=== PATIENT | male | born 1980 | race American Indian/Alaskan Native ===

== ENCOUNTER 2019-02-25 07:45 | Inpatient (IN) | payer OTHER ==
[2019-02-25] MEDS ORDERED: CARDIZEM IV ONE ×2 (08:22→09:18)
[2019-02-25 08:39] LABS: Basophils # (Auto) 0.2 K/mm3 (0.0-0.1); Basophils % (Auto) 2.5 % (0.0-1.8); Eosinophils # (Auto) 0.1 K/mm3 (0.0-0.4); Eosinophils % (Auto) 1.6 % (0.0-4.3); Hematocrit 55.2 % (35.5-45.6); Hemoglobin 19.2 gm/dl (11.8-15.2); Lymphocytes # (Auto) 2.4 K/mm3 (1.2-5.4); Lymphocytes % (Auto) 34.9 % (13.4-35.0); Mean Corpuscular HGB Conc 35 % (32-34); Mean Corpuscular Volume 94 fl (84-94); Monocytes # (Auto) 0.5 K/mm3 (0.0-0.8); Monocytes % (Auto) 6.8 % (0.0-7.3); Platelet Count 248 K/mm3 (140-440); Red Blood Count 5.88 M/mm3 (3.65-5.03)
[2019-02-25 08:50] LABS: INR 0.97 (0.87-1.13); Partial Thromboplastin Time 25.2 Sec. (24.2-36.6)
[2019-02-25 08:50] LABS: BUN/Creatinine Ratio 19; Blood Urea Nitrogen 15 mg/dL (9-20); Hemolysis Index 13
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
[2019-02-25 09:01] LABS: Alanine Aminotransferase 29 units/L (7-56); Albumin 3.7 g/dL (3.9-5)
[2019-02-25 09:06] LABS: Bilirubin,Direct < 0.2 mg/dL (0-0.2)
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
--- NOTE | 2019-02-25 10:44 | Consultation ---
History of Present Illness Consult date: 02/25/19 Requesting physician: JASMEET POLLARD Consult reason: atrial fibrillation History of present illness: The pt is a 39 YO male with a past medical history of HTN, DM, tobacco use, ETOH use. He is previously unknown to our practice. He presented with c/o diaphoresis and palpitations since this morning. He states that he was in his normal state of health when he went to sleep last night. His symptoms were noted after waking up this morning and progressively got worse while he was getting his child dressed for school. He took his child to school and stopped by the [employer] station to be evaluated and was noted to be tachycardic and was referred to ED for further eval/management. He denies any chest pain, SOB, n/v, dizziness or syncope. Following arrival to ED, he was noted to be in AFib with RVR. He was given IV cardizem boluses which improved his HR. On evaluation, he remains in AFib with HR 70s - 110s, BPs stable. He denies any prior CAD, AMI, HF or arrhythmias. He denies any illicit drug use or excessive caffeine intake. He drinks 1-2 beers per night and drinks several mixed drinks every weekend. He denies any prior cardiac evaluation. His home medication regimen includes lisinopril and metformin. Past History Past Medical History: diabetes, hypertension Social history: , lives with family, smoking, alcohol abuse Medications and Allergies Allergies Allergy/AdvReac Type Severity Reaction Status Date / Time No Known Allergies Allergy Verified 02/25/19 07:56 Home Medications Medication Instructions Recorded Confirmed Last Taken Type Cyclobenzaprine HCl [Flexeril] 10 mg PO TID PRN #15 tablet 10/06/13 Unknown Rx Ibuprofen [Motrin] 800 mg PO TID PRN #21 tablet 10/06/13 Unknown Rx amLODIPine [Norvasc] 5 mg PO DAILY #30 tab 04/26/14 Unknown Rx Active Meds: Active Medications Diltiazem HCl (Cardizem/D5w 100mg/100ml) 100 mg in 100 mls @ 5 mls/hr IV TITR SHARONDA; Protocol Review of Systems Constitutional: no weight loss, no weight gain, no fever, no chills, no sweats Ears, nose, mouth and throat: no ear pain, no nose pain, no sinus pressure, no sinus pain Cardiovascular: palpitations, high blood pressure, no chest pain, no orthopnea, no rapid/irregular heart beat, no edema, no syncope, no lightheadedness, no shor tness of breath, no dyspnea on exertion, no leg edema Respiratory: no cough, no shortness of breath, no dyspnea on exertion, no congestion, no wheezing, no pain on inspiration Gastrointestinal: no abdominal pain, no nausea, no vomiting, no diarrhea, no constipation, no change in bowel habits Genitourinary Male: no dysuria, no hematuria, no flank pain, no discharge, no urinary frequency, no urinary hesitancy Musculoskeletal: no neck stiffness, no neck pain, no shooting arm pain, no arm numbness/tingling, no low back pain, no shooting leg pain, no leg numbness/tingling Integumentary: no rash, no pruritis, no redness, no sores, no wounds Neurological: no head injury, no paralysis, no weakness, no parathesias, no numbness, no tingling, no seizures, no syncope Psychiatric: no anxiety Endocrine: no cold intolerance, no heat intolerance Hematologic/Lymphatic: no easy bruising, no easy bleeding Allergic/Immunologic: no urticaria, no wheezing Physical Examination Vital Signs Temp Pulse Resp BP Pulse Ox 98.2 F 155 H 22 129/90 97 02/25/19 07:57 02/25/19 07:57 02/25/19 07:57 02/25/19 07:57 02/25/19 07:57 General appearance: no acute distress HEENT: Positive: PERRL, Normocephaly, Mucus Membranes Moist Neck: Positive: neck supple, trachea midline Cardiac: Positive: irregularly irregular, S1/S2 Lungs: Positive: clear to auscultation Neuro: Positive: Grossly Intact Abdomen: Positive: Soft. Negative: Tender Skin: Negative: Rash, Wound Musculoskeletal: No Pain Extremities: Absent: edema Results 02/25/19 08:12 02/25/19 08:12 Cardiac Enzymes 02/25/19 Range/Units 08:12 AST 28 (5-40) units/L Coagulation 02/25/19 Range/Units 08:30 PT 13.5 (12.2-14.9) Sec. INR 0.97 (0.87-1.13) APTT 25.2 (24.2-36.6) Sec. CBC 02/25/19 Range/Units 08:12 WBC 7.0 (4.5-11.0) K/mm3 RBC 5.88 H (3.65-5.03) M/mm3 Hgb 19.2 H (11.8-15.2) gm/dl Hct 55.2 H (35.5-45.6) % Plt Count 248 (140-440) K/mm3 Lymph # 2.4 (1.2-5.4) K/mm3 [place] # 0.5 (0.0-0.8) K/mm3 Eos # 0.1 (0.0-0.4) K/mm3 Baso # 0.2 H (0.0-0.1) K/mm3 Comprehensive Metabolic Panel 02/25/19 02/25/19 Range/Units 08:12 08:12 Sodium 135 L (137-145) mmol/L Potassium 4.5 (3.6-5.0) mmol/L Chloride 100.6 (98-107) mmol/L Carbon Dioxide 20 L (22-30) mmol/L BUN 15 (9-20) mg/dL Creatinine 0.8 (0.8-1.5) mg/dL Glucose 188 H (75-100) mg/dL Calcium 9.0 (8.4-10.2) mg/dL Direct Bilirubin < 0.2 (0-0.2) mg/dL Indirect Bilirubin 0.2 mg/dL AST 28 (5-40) units/L ALT 29 (7-56) units/L Alkaline Phosphatase 66 (35-129) units/L Total Protein 7.1 (6.3-8.2) g/dL Albumin 3.7 L (3.9-5) g/dL - Imaging and Cardiology Echo: pending EKG: report reviewed, image reviewed EKG interpretations - Telemetry EKG Rhythm: Atrial Fibrillation - EKG Supraventricular dysrhythmia: atrial fibrillation Assessment and Plan Will attempt to chemically convert to NSR - initiate PO amiodarone and lopressor. If pt does not convert to SR overnight, will tentatively CELSO guided DCCV in AM. NPO after MN. Initiate full dosage lovenox and consider conversion to NOAC prior to hospital discharge. Obtain thyroid profile and tte. Cessation of tobacco and ETOH use strongly encouraged. Assessment and plan reviewed with pt and pt's at bedside. The patient has been seen in conjunction with Dr. Soliman who agrees with the assessment and plan of care. - Patient Problems (1) Atrial fibrillation with RVR Current Visit: Yes Status: Acute (2) HTN (hypertension) Current Visit: Yes Status: Chronic (3) Diabetes Current Visit: Yes Status: Chronic (4) Obesity Current Visit: Yes Status: Chronic (5) Alcohol use Current Visit: Yes Status: Chronic (6) Tobacco use Current Visit: Yes Status: Chronic
[2019-02-25] MEDS ORDERED: BABY ASPIRIN PO ONE (10:45)
[2019-02-25] MEDS ORDERED: CARDIZEM/D5W 100MG/100ML 100 MG/100 ML BAG IV SCH (11:00)
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
[2019-02-25] MEDS: LOVENOX SUB-Q SCH ×2 (11:55→22:13)
[2019-02-25] MEDS: CORDARONE PO SCH ×3 (11:55→21:35)
[2019-02-25] MEDS ORDERED: MORPHINE IV PRN (12:01)
[2019-02-25] MEDS ORDERED: ZOFRAN IV PRN (12:01)
[2019-02-25] MEDS ORDERED: TYLENOL PO PRN (12:01)
[2019-02-25] MEDS ORDERED: SODIUM CHLORIDE FLUSH SYRINGE 10 ML IV PRN (12:01)
[2019-02-25] MEDS: LOPRESSOR PO SCH ×2 (13:55→21:30)
[2019-02-25] MEDS ORDERED: LOPRESSOR PO SCH (14:00)
[2019-02-25] MEDS: SODIUM CHLORIDE FLUSH SYRINGE 10 ML IV SCH (22:19)
[2019-02-26 06:06] LABS: Basophils % (Auto) 0.6 % (0.0-1.8); Eosinophils # (Auto) 0.1 K/mm3 (0.0-0.4); Eosinophils % (Auto) 1.5 % (0.0-4.3); Hematocrit 54.7 % (35.5-45.6); Hemoglobin 18.6 gm/dl (11.8-15.2); Lymphocytes # (Auto) 3.6 K/mm3 (1.2-5.4); Lymphocytes % (Auto) 42.8 % (13.4-35.0); Mean Corpuscular HGB Conc 34 % (32-34); Mean Corpuscular Volume 95 fl (84-94); Monocytes # (Auto) 0.8 K/mm3 (0.0-0.8); Platelet Count 243 K/mm3 (140-440); Red Blood Count 5.73 M/mm3 (3.65-5.03); Red Cell Distribution Width 13.1 % (13.2-15.2)
[2019-02-26 06:23] LABS: BUN/Creatinine Ratio 19; Blood Urea Nitrogen 17 mg/dL (9-20); Hemolysis Index 20
[2019-02-26] MEDS: LOPRESSOR PO SCH (09:10)
[2019-02-26 09:38] VITALS: BP 156/99
--- NOTE | 2019-02-26 10:15 | Progress Note ---
Assessment and Plan Pt converted to NSR overnight and remains in SR today. CELSO guided DCCV cancelled. D/c amiodarone and increase lopressor to 25mg BID. Await tte. Cont lovenox and plan for conversion to Eliquis prior to hospital discharge. Possible d/c home this afternoon. The patient has been seen in conjunction with Dr. Soliman who agrees with the assessment and plan of care. - Patient Problems (1) Atrial fibrillation with RVR Current Visit: Yes Status: Acute (2) HTN (hypertension) Current Visit: Yes Status: Chronic (3) Diabetes Current Visit: Yes Status: Chronic (4) Obesity Current Visit: Yes Status: Chronic (5) Alcohol use Current Visit: Yes Status: Chronic (6) Tobacco use Current Visit: Yes Status: Chronic Subjective Date of service: 02/26/19 Principal diagnosis: AFib RVR Interval history: Pt resting in bed, no current cardiac complaints. tele reviewed - pt converted to SR overnight and remains in NSR. Objective Last Vital Signs Temp 97.6 F 02/26/19 07:34 Pulse 97 H 02/26/19 08:54 Resp 18 02/26/19 07:34 BP 156/99 02/26/19 07:34 Pulse Ox 99 02/26/19 09:01 - Physical Examination General: No Apparent Distress HEENT: Positive: PERRL, Normocephaly, Mucus Membranes Moist Neck: Positive: neck supple, trachea midline Cardiac: Positive: Reg Rate and Rhythm, S1/S2 Lungs: Positive: Decreased Breath Sounds Neuro: Positive: Grossly Intact Abdomen: Positive: Soft. Negative: Tender Skin: Negative: Rash, Wound Musculoskeletal: No Pain Extremities: Absent: edema - Labs and Meds CBC 02/26/19 Range/Units 04:38 WBC 8.4 (4.5-11.0) K/mm3 RBC 5.73 H (3.65-5.03) M/mm3 Hgb 18.6 H (11.8-15.2) gm/dl Hct 54.7 H (35.5-45.6) % Plt Count 243 (140-440) K/mm3 Lymph # 3.6 (1.2-5.4) K/mm3 [place] # 0.8 (0.0-0.8) K/mm3 Eos # 0.1 (0.0-0.4) K/mm3 Baso # 0.0 (0.0-0.1) K/mm3 Comprehensive Metabolic Panel 02/26/19 Range/Units 04:38 Sodium 137 (137-145) mmol/L Potassium 4.0 (3.6-5.0) mmol/L Chloride 101.0 (98-107) mmol/L Carbon Dioxide 24 (22-30) mmol/L BUN 17 (9-20) mg/dL Creatinine 0.9 (0.8-1.5) mg/dL Glucose 154 H (75-100) mg/dL Calcium 9.0 (8.4-10.2) mg/dL - Imaging and Cardiology EKG: report reviewed, image reviewed Echo: pending
[2019-02-26] MEDS: LOVENOX SUB-Q SCH (11:32)
[2019-02-26] MEDS: SODIUM CHLORIDE FLUSH SYRINGE 10 ML IV SCH (11:33)
--- NOTE | 2019-02-26 16:00 | Event Note ---
Date: 02/26/19 TTE reviewed. Pt remains in NSR. Currently stable cardiac status. Pt may discharge home from cardiology standpoint on Lopressor and Eliquis. Follow up in our [place] office with Dr. Masterson on 03/06/2019 @ 10:30AM. Ariana MORGAN NP / DR. MASTERSON
--- NOTE | 2019-02-26 16:32 | Discharge Summary ---
Providers - Providers Date of Admission: 02/25/19 10:39 Date of discharge: 02/26/19 Attending physician: DANIELLE ESPINAL Primary care physician: [facility] Hospital[facility] Condition: Fair Hospital course: Patient is 39 yo with diabetes, hypertension. He presented with sudden palpitation. He denied chest pain. Palpitations worse on exertion and associated with shortness of breath. He was seen and examined in Emergency Department. EKG revealed atrial fibrillation with rapid ventricular response. He was given Cardizem iv. Cardiology consulted and patient was evaluated in ED and admitted. He was put on Amiodarone and Metoprolol. Patient evaluated following day and was much improved. He had converted to normal sinus rhythm. Cardiology recommended increasing dose of metoprolol and discontinuing Amiodarone. He was subsequently discharged home. Disposition: TO HOME OR SELFCARE - Discharge Diagnoses (1) Atrial fibrillation with RVR Status: Acute (2) Diabetes Status: Chronic (3) HTN (hypertension) Status: Chronic (4) Obesity Status: Chronic Core Measure Documentation - Palliative Care Palliative Care/ Comfort Measures: Not Applicable - Core Measures Any of the following diagnoses?: none Exam - Constitutional Vitals: Temp Pulse Resp BP Pulse Ox 97.6 F 97 H 18 156/99 99 02/26/19 07:34 02/26/19 08:54 02/26/19 07:34 02/26/19 07:34 02/26/19 09:01 Plan Activity: no restrictions Diet: low fat, low cholesterol, low salt, diabetic Additional Instructions: 1.Follow up with PCP in 1 week. 2.Follow up with Dr. Masterson on 03/06/19 Follow up with: SEAN MASTERSON MD [Staff Physician] - 7 Days ([place] office with Dr. Masterson on 03/06/2019 @ 10:30AM. ) DESIREE SHETTY MD [Primary Care Provider] - 3-5 Days Prescriptions: Apixaban [Eliquis] 5 mg PO Q12HR #60 tablet Metoprolol [Lopressor TAB] 25 mg PO BID #30 tablet
[2019-02-26] MEDS ORDERED: LOPRESSOR PO SCH (22:00)
[2019-02-26] MEDS ORDERED: ELIQUIS PO SCH (22:00)
== END 2019-02-26 18:02 | disposition home or self-care (01) | DRG 309 ==
LOC: ED 07:45 → CC1 10:39 → 4A 12:26
PROVIDERS: ADMIT Internal Medicine; ATTEND Internal Medicine
DX: I48.91 Unspecified atrial fibrillation (principal); E87.1 Hypo-osmolality and hyponatremia; F17.200 Nicotine dependence, unspecified, uncomplicated; G89.29 Other chronic pain; I10 Essential (primary) hypertension; E11.9 Type 2 diabetes mellitus without complications; Z82.49 Family history of ischemic heart disease and other diseases of the circulatory system; Z79.84 Long term (current) use of oral hypoglycemic drugs
CPT/HCPCS: 36415; 71045; 80048; 80076; 82962; 83036; 83735; 84439; 84443; 84484; 85025; 85610; 85730; 93005; 93010; 93306; G0378; J1650